=== PATIENT | male | born 1975 | race Two or more races ===

== ENCOUNTER 2019-07-19 01:06 | Emergency (ER) | payer BC ==
[~2019-07-19] VITALS: Ht 167.6 cm; Wt 88.5 kg
[2019-07-19 01:13] VITALS: Ht 167.6 cm; Wt 88.5 kg
[2019-07-19 02:34] VITALS: BP 116/72
== END 2019-07-19 02:34 | disposition home or self-care (01) ==
LOC: ED 01:06
DX: K29.70 Gastritis, unspecified, without bleeding (principal)
CPT/HCPCS: J1885